=== PATIENT | female | born 1985 | race Caucasian/White ===

== ENCOUNTER → 2019-12-09 18:00 | Outpatient (CLI) | payer MEDICAID, SELFPAY | PROVIDERS: Referring Provider Nurse Practitioner Family; Visit Provider Nurse Practitioner Family | DX: Z20.828 Contact with and (suspected) exposure to other viral communicable diseases (principal); R11.10 Vomiting, unspecified; R19.7 Diarrhea, unspecified | CPT/HCPCS: 87635; C9803; U0003 ==